=== PATIENT | male | born 1970 | race Caucasian/White ===

== ENCOUNTER → 2020-09-14 13:19 | Outpatient (CLI) | payer SELFPAY ==
--- NOTE | 2020-09-14 13:34 | RAD_ITS ---
STUDY: X-RAY - RIGHT KNEE REASON FOR EXAM: Right knee pain for 3 years with progressive worsening. TECHNIQUE: 4 view(s) of the knee. COMPARISON: None. FINDINGS: Normal visualized distal femur. Normal visualized proximal tibia and fibula. Normal proximal tibiofibular articulation. Normal medial femorotibial compartment. Normal lateral femorotibial compartment. Normal patellofemoral articulation. The soft tissue structures are unremarkable. RAD/Knee 4 or More Views IMPRESSION: Unremarkable x-ray examination of the right knee. Electronically Signed: Meng Young MD at 14:27 EDT Tel , Service support ,
--- NOTE | 2020-09-14 13:34 | RAD_ITS ---
STUDY: X-RAY - LEFT KNEE REASON FOR EXAM: Left knee pain for 3 years with progressive worsening. TECHNIQUE: 4 view(s) of the knee. COMPARISON: None. FINDINGS: Normal visualized distal femur. Normal visualized proximal tibia and fibula. Normal proximal tibiofibular articulation. Normal medial femorotibial compartment. Normal lateral femorotibial compartment. Normal patellofemoral articulation. The soft tissue structures are unremarkable. RAD/Knee 4 or More Views IMPRESSION: Unremarkable x-ray examination of the left knee. Electronically Signed: Meng Young MD at 14:31 EDT Tel , Service support ,
== END ==
PROVIDERS: PCP Family Medicine
DX: M25.561 Pain in right knee (principal); M25.562 Pain in left knee; M51.36 Other intervertebral disc degeneration, lumbar region; M15.9 Polyosteoarthritis, unspecified; M79.10 Myalgia, unspecified site
CPT/HCPCS: 73564

== ENCOUNTER → 2021-06-16 11:41 | Outpatient (CLI) | payer SELFPAY ==
--- NOTE | 2021-06-16 11:45 | RAD_ITS ---
STUDY: X-RAY - CERVICAL SPINE REASON FOR EXAM: Male, 50 years old. NECK PAIN TECHNIQUE: 5 view(s) of the cervical spine were obtained. COMPARISON: None FINDINGS: Normal anterior atlantoaxial articulation. Normal odontoid process. There is straightening of the normal cervical lordosis. Normal vertebral bodies and endplates. Normal disc space heights. Normal visualized intervertebral neuroforamina. The soft tissue structures are unremarkable. RAD/Cerv Spine 4 or 5 Views IMPRESSION: Normal x-ray examination of the visualized cervical spine. Electronically Signed: Shady Obrien MD at 9:10 EDT ,
== END ==
PROVIDERS: PCP Family Medicine
DX: M54.2 Cervicalgia (principal)
CPT/HCPCS: 72050